=== PATIENT | male | born 1975 | race Caucasian/White ===

== ENCOUNTER 2024-02-29 14:11 | Outpatient (CLI) | payer MEDICAID, SELFPAY ==
[2024-02-29 15:02] LABS: Hepatitis C Virus Antibody Reactive (Nonreactive)
== END 2024-02-29 14:12 | disposition home or self-care (01) ==
LOC: LAB 14:14
PROVIDERS: PCP Nurse Practitioner Family; Visit Provider Nurse Practitioner Family
DX: R76.8 Other specified abnormal immunological findings in serum (principal)
CPT/HCPCS: 36415; 86803; 87522